=== PATIENT | female | born 1960 | race Caucasian/White ===

== ENCOUNTER 2018-01-11 09:03 | Day surgery (SDC) | payer BC ==
[~2018-01-11 09:03] MED LIST: Lactated Ringers 1,000 ML IV SCH; Propofol 200 MG/20 ML SDV ONE; Sodium Chloride 0.9% 10 ML Syringe FLUSH PRN
[2018-01-11] MEDS ORDERED: Propofol 200 MG/20 ML SDV ONE (09:22)
--- NOTE | 2018-01-11 09:25 | PCM.HPR ---
H & P Addendum review - H & P Addendum Review Date of Original H & P: 12/18/17 Date Reviewed: 01/11/18 Time Reviewed: 09:15 Patient was Examined: No Changes
--- NOTE | 2018-01-11 09:45 | PCM.OPNOTE ---
- General Post-Op/Procedure Note Date of Surgery/Procedure: 01/11/18 Operative Procedure(s): Colonoscopy with Bx Findings: Sig Tics Pre Op Diagnosis: Chronic Diarrhea Post-Op Diagnosis: Same Anesthesia Technique: MAC Primary Surgeon: Cristian Diaz EBMable in mLs: 0 Complications: None Condition: Good Free Text/Narrative:: Intake & Output 01/10/18 01/11/18 01/11/18 22:59 06:59 14:59 Intake Total 500 Balance 500
--- NOTE | 2018-01-11 10:58 | OR ---
Date of Procedure: 01/11/2018 PREOPERATIVE DIAGNOSIS: Chronic diarrhea. POSTOPERATIVE DIAGNOSIS: Sigmoid diverticulosis. PROCEDURE: Colonoscopy with biopsy. ANESTHESIA: IV sedation. DESCRIPTION OF PROCEDURE: The patient was brought to the procedure room, where she was placed on her left side and IV sedation administered. Digital rectal exam was performed, which was normal. Colonoscope was inserted and advanced to the level of the cecum without difficulty. Cecal position was confirmed by identifying the appendiceal lumen and ileocecal valve. Prep was good and surfaces were well visualized. Upon withdrawing the scope, the ascending, transverse, and descending colon were normal in appearance. Sigmoid colon had multiple diverticula present. I did take random biopsies from all segments of the colon to check for microscopic colitis. The rectum was normal and retroflexion was normal. Air was removed and the scope withdrawn. The patient tolerated the procedure well and returned to recovery in stable condition. I will have the patient followup with her primary provider next week for review of biopsies. She should consider routine colon screening again in 10 years. ALEJANDRA SANTANA MD /[id number]
== END 2018-01-11 11:17 | disposition home or self-care (01) ==
LOC: LL.SDS 09:03 → MERGE 10:15 → LL.SDS 11:17
PROVIDERS: ATTEND Surgery
DX: K52.832 Lymphocytic colitis (principal); K57.30 Diverticulosis of large intestine without perforation or abscess without bleeding; E03.9 Hypothyroidism, unspecified; E78.5 Hyperlipidemia, unspecified; F32.9 Major depressive disorder, single episode, unspecified; J45.909 Unspecified asthma, uncomplicated; E66.9 Obesity, unspecified; Z68.35 Body mass index [BMI] 35.0-35.9, adult; Z88.2 Allergy status to sulfonamides; Z79.899 Other long term (current) drug therapy
CPT/HCPCS: J2704; J7120